=== PATIENT | male | born 1980 ===

== ENCOUNTER 2017-05-22 12:28 | Emergency (ER) | payer OTHER ==
--- NOTE | ~2017-05-22 | ER ---
ADMIT: 05/22/2017 RM/LOC: ER [facility] MR#: [id number] [address] [id number] [facility] [address] [place] [id number] Emergency Room Report SEX: M AGE: 36 : 1980 DATE: 05/22/2017 TIME: 1228 hours. Please refer to my T-sheet for complete H and P. HISTORY OF PRESENT ILLNESS: The patient is a 36-year-old, who works out at [employer]. He swings the meat hook, swung how he swings it and it hit his right tibia, went through his clothing. He sustained laceration, and this happened just prior to arrival. He came here directly. No other complaints. PHYSICAL EXAMINATION: VITAL SIGNS: Stable. EXTREMITIES: His right leg has a 2 cm laceration to the anterior tibia just slightly lateral of midline. Neurovascularly intact distally. There is a localized hematoma. EMERGENCY DEPARTMENT COURSE: X-ray of his right tib-fib showed no foreign body, but soft tissue swelling. We anesthetized the area with 4 mL of bupivacaine with Epi. I then cleansed with copious amounts of saline flush. I then approximated using four 4-0 interrupted Ethilon. Good approximation and hemostasis were achieved. ASSESSMENT: 1. Right leg laceration 2 cm, closed in the Emergency Department as above. 2. A kind of a puncture wound with a meat hook. PLAN: Tylenol, Motrin, return if worse. Keflex 500 b.i.d. for 5 days. Light duty today and tomorrow. Yoav Greer MD/ kulwant JOB #: [id number] CC: Yoav Greer MD, Attending Physician Patience Bishop MD, Family Physician
== END 2017-05-22 14:00 | disposition home or self-care (01) ==
LOC: ER 12:28
PROC: 0HQKXZZ Repair Right Lower Leg Skin, External Approach (ICD-10-PCS; principal; 2017-05-22)
DX: S81.811A Laceration without foreign body, right lower leg, initial encounter (principal); Z23 Encounter for immunization; W26.9XXA Contact with unspecified sharp object(s), initial encounter; Y92.69 Other specified industrial and construction area as the place of occurrence of the external cause